=== PATIENT | female | born 1990 | race Caucasian/White ===

== ENCOUNTER → 2016-07-19 | Outpatient (REF) | payer OTHER ==
[~2016-07-19] MED LIST: ACET50TA PO; IBUP-1114 PO; PRENTAB9 PO
== END ==
LOC: M LAB REF 16:48
PROVIDERS: ATTEND Advanced Practice Midwife
DX: Z12.4 Encounter for screening for malignant neoplasm of cervix (principal)

== ENCOUNTER → 2017-10-03 | Outpatient (REF) | payer OTHER, SELFPAY | LOC: M LAB REF 13:42 | DX: Z12.4 Encounter for screening for malignant neoplasm of cervix (principal) | CPT/HCPCS: 88142; G0123 ==

== ENCOUNTER 2018-01-02 06:49 | Emergency (ER) | payer OTHER, SELFPAY ==
[2018-01-02] MEDS: NS 500 ML IV ×4 (08:34)
[2018-01-02] MEDS: KETOROLAC 30 MG/ML VIAL (J1885) IV ×4 (08:37)
[2018-01-02 08:42] LABS: BASO % 0.2 % (0.0-1.0); EOS # 0.1 10^3/uL (0.0-0.50); HEMATOCRIT 40.2 % (36.0-47.0); HEMOGLOBIN 13.8 g/dl (12.0-15.5); IMMATURE GRANULOCYTE % 0.4 % (0-3.0); LYMPH # 1.6 10^3/uL (1.5-6.5); LYMPH % 16.2 % (24.0-44.0); MEAN CORPUSCULAR HEMOGLOBIN 30.5 pg (27.0-33.0); MEAN CORPUSCULAR HGB CONC 34.3 g/dl (32.0-36.5); MEAN CORPUSCULAR VOLUME 88.7 fl (80.0-96.0); MONO # 0.2 10^3/uL (0.0-0.8); MONO % 2.4 % (0.0-5.0); NEUTROPHILS % 79.8 % (36.0-66.0); PLATELET COUNT, AUTOMATED 268 10^3/uL (150-450); RED BLOOD COUNT 4.53 10^6/uL (4.00-5.40); RED CELL DISTRIBUTION WIDTH 12.5 % (11.5-14.5)
[2018-01-02 08:45] LABS: KETONE, URINE AUTO RFX TRACE mg/dL (NEGATIVE); LEUKOCYTE ESTERASE UR AUTO RFX NEGATIVE (NEGATIVE); MUCUS, URINE RFX SMALL (NEGATIVE); NITRITE, URINE AUTO RFX NEGATIVE (NEGATIVE); RBC, URINE AUTO RFX 4 /HPF (0-3); SPECIFIC GRAVITY UR AUTO RFX 1.041 (1.002-1.035); SQUAM EPITHELIAL CELL UR AURFX 7 /HPF (0-6); WBC, URINE AUTO RFX 3 /HPF (0-3)
[2018-01-02 09:07] LABS: CONTROL LINE HCG INT CTR LINE PRESENT; HCG, SERUM QUALITATIVE NEGATIVE (NEGATIVE)
[2018-01-02 09:10] LABS: ALBUMIN 4.5 GM/DL (3.2-5.2); ALBUMIN/GLOBULIN RATIO 1.22 (1.00-1.93); ALKALINE PHOSPHATASE 97 U/L (45-117); ALT/SGPT 19 U/L (12-78); AMYLASE 61 U/L (25-115); ANION GAP 8 MEQ/L (8-16); AST/SGOT 11 U/L (7-37); BILIRUBIN,DIRECT < 0.1 MG/DL (0.0-0.2); BILIRUBIN,TOTAL 0.2 MG/DL (0.2-1.0); BLOOD UREA NITROGEN 18 MG/DL (7-18); CALCIUM LEVEL 9.5 MG/DL (8.5-10.1); CARBON DIOXIDE LEVEL 23 MEQ/L (21-32); CHLORIDE LEVEL 108 MEQ/L (98-107); CREATININE FOR GFR 0.65 MG/DL (0.55-1.30); GLOMERULAR FILTRATION RATE > 60.0 (>60); GLUCOSE, FASTING 122 MG/DL (70-100); LIPASE 108 U/L (73-393); POTASSIUM SERUM 4.5 MEQ/L (3.5-5.1); SODIUM LEVEL 139 MEQ/L (136-145); TOTAL PROTEIN 8.2 GM/DL (6.4-8.2)
[2018-01-02] MEDS ORDERED: ISOVUE-370 76% 100ML VIAL (Q9967) As Ordered ×4 (09:46)
[2018-01-02] MEDS: GI COCKTAIL 50ML BTL(HYOSCYAMINE/MAALOX/LIDOCAINE VISCOUS)(1:3:1) PO ×4 (10:35)
[2018-01-02 12:34] LABS: CHLAMYDIA DNA AMPLIFICATION NEGATIVE (NEGATIVE); GC DNA AMPLIFICATION NEGATIVE (NEGATIVE)
== END 2018-01-02 11:03 | disposition home or self-care (01) ==
LOC: M ED 06:49
DX: N30.01 Acute cystitis with hematuria (principal); N76.0 Acute vaginitis; F17.210 Nicotine dependence, cigarettes, uncomplicated; Z79.3 Long term (current) use of hormonal contraceptives
CPT/HCPCS: Q9967

== ENCOUNTER 2018-11-29 19:50 | Emergency (ER) | payer MEDICAID, OTHER, SELFPAY ==
[~2018-11-29] VITALS: Ht 157.5 cm; Wt 64.1 kg
[~2018-11-29 19:50] MED LIST changes: -ACET50TA PO; +BACT800T5 PO; +MAPA500T2 PO; +PEPC1TAB5 PO; +SALINE INH
[2018-11-29] MEDS ORDERED: ACET-908 PO (19:58)
[2018-11-29 20:27] LABS: HEMATOCRIT 36.2 % (36.0-47.0); HEMOGLOBIN 12.4 g/dl (12.0-15.5); MEAN CORPUSCULAR HEMOGLOBIN 30.1 pg (27.0-33.0); MEAN CORPUSCULAR HGB CONC 34.3 g/dl (32.0-36.5); MEAN CORPUSCULAR VOLUME 87.9 fl (80.0-96.0); PLATELET COUNT, AUTOMATED 220 10^3/uL (150-450); RED BLOOD COUNT 4.12 10^6/uL (4.00-5.40); WHITE BLOOD COUNT 14.8 10^3/uL (4.0-10.0)
[2018-11-29] MEDS ORDERED: ONDANSETRON 4MG/2ML VIAL (J2405) IV ONE (20:45)
[2018-11-29] MEDS ORDERED: NS 1,000 ML IV ONE (20:45)
[2018-11-29] MEDS ORDERED: NITROFURANTOIN (MACROBID) 100 MG CAP PO ONE (22:00)
[2018-11-29] MEDS ORDERED: MACR100C43 PO (22:01)
[2018-11-29 22:16] VITALS: BP 115/62
== END 2018-11-29 22:20 | disposition home or self-care (01) ==
LOC: M ED 19:50
DX: O23.11 Infections of bladder in pregnancy, first trimester (principal); O99.611 Diseases of the digestive system complicating pregnancy, first trimester; K21.9 Gastro-esophageal reflux disease without esophagitis; Z87.891 Personal history of nicotine dependence; Z3A.12 12 weeks gestation of pregnancy
CPT/HCPCS: 80047; 81001; 83605; 84702; 85027; 87088; 87186; 96361; 96374; 99284; J2405

== ENCOUNTER → 2018-12-25 | Outpatient (REF) | payer MEDICAID ==
[~2018-12-25] MED LIST changes: +ACET-908 PO; +MACR100C43 PO
== END ==
LOC: M LAB REF 17:08
PROVIDERS: ATTEND Advanced Practice Midwife
DX: R30.0 Dysuria (principal)

== ENCOUNTER → 2019-01-15 | Outpatient (CLI) | payer OTHER, MEDICAID ==
[2019-01-15 17:33] LABS: BASO % 0.3 % (0.0-1.0); EOS # 0.4 10^3/uL (0.0-0.5); EOS % 3.5 % (0.0-3.0); HEMATOCRIT 34.2 % (36.0-47.0); HEMOGLOBIN 11.4 g/dl (12.0-15.5); LYMPH # 1.9 10^3/uL (1.5-5.0); LYMPH % 17.9 % (24.0-44.0); MEAN CORPUSCULAR HEMOGLOBIN 29.7 pg (27.0-33.0); MEAN CORPUSCULAR HGB CONC 33.3 g/dl (32.0-36.5); MEAN CORPUSCULAR VOLUME 89.1 fl (80.0-96.0); MONO # 0.5 10^3/uL (0.0-0.8); MONO % 4.5 % (0.0-5.0); NEUTROPHILS # 7.8 10^3/uL (1.5-8.5); NEUTROPHILS % 73.4 % (36.0-66.0); PLATELET COUNT, AUTOMATED 241 10^3/uL (150-450); RED BLOOD COUNT 3.84 10^6/uL (4.00-5.40); WHITE BLOOD COUNT 10.6 10^3/uL (4.0-10.0)
[2019-01-15 19:38] LABS: CHLAMYDIA DNA AMPLIFICATION NEGATIVE (NEGATIVE); GC DNA AMPLIFICATION NEGATIVE (NEGATIVE)
[2019-01-16 10:36] LABS: HEPATITIS C VIRUS ABY INDEX 0.1 INDEX (<0.8); HIV 1&2 SCREEN CENTAUR NEGATIVE (NEGATIVE); RUBELLA IgG QUALITATIVE IMMUNE (IMMUNE)
== END ==
LOC: M SMT 14:27
PROVIDERS: ATTEND Advanced Practice Midwife
DX: Z34.82 Encounter for supervision of other normal pregnancy, second trimester (principal); Z3A.18 18 weeks gestation of pregnancy

== ENCOUNTER → 2019-01-25 | Outpatient (CLI) | payer MEDICAID, OTHER ==
--- NOTE | 2019-01-25 19:33 | REP ---
REASON: anatomy. PRIORS: None. Multiple ultrasonographic images of the gravid uterus show a single living intrauterine gestation in the doug breach presentation. Doppler interrogation of the heart shows a heart rate of 151 beats per minutes. The placenta is anterior and not low lying. The subjective amniotic fluid volume is within normal limits. The cervix measures 4.9 cm in length and is closed. Evaluation of the maternal adnexal spaces showed no abnormalities. The anatomical structures seen is unremarkable and are as follows: Thalami, cavum septum pellucidum, cerebellum, cisterna magna, cerebral ventricles, spine, kidneys, urinary bladder, upper and lower extremities, three vessel umbilical cord, cord insertion, stomach, four chamber heart, right and left ventricular outflow tracts and facial features. BPD: 4.6 cm 20 weeks 0 days. HC: 16.8 cm 19 weeks 3 days. AC: 14.4 cm 19 weeks 5 days FL: 3.1 cm 19 weeks 4 days The estimated weight is 338 grams which is at the 32 percentile for a 20 week 1 day gestational age. IMPRESSION:Single living intrauterine gestation as described above with an estimated gestational age of 19 weeks 5 days via composite criteria and an estimated date of delivery of 06/16/2019 by today's exam. No anomalies were detected. Electronically Signed by Beto Germain DO 01/28/2019 02:51 P
== END ==
LOC: M RAD 11:35
PROVIDERS: ATTEND Advanced Practice Midwife
DX: Z34.82 Encounter for supervision of other normal pregnancy, second trimester (principal); Z3A.18 18 weeks gestation of pregnancy

== ENCOUNTER → 2019-03-12 | Outpatient (CLI) | payer OTHER ==
[2019-03-12 15:22] LABS: BASO % 0.1 % (0.0-1.0); EOS # 0.1 10^3/uL (0.0-0.5); EOS % 1.3 % (0.0-3.0); HEMATOCRIT 32.3 % (36.0-47.0); HEMOGLOBIN 10.5 g/dl (12.0-15.5); LYMPH # 1.7 10^3/uL (1.5-5.0); LYMPH % 19.5 % (24.0-44.0); MEAN CORPUSCULAR HEMOGLOBIN 29.2 pg (27.0-33.0); MEAN CORPUSCULAR HGB CONC 32.5 g/dl (32.0-36.5); MEAN CORPUSCULAR VOLUME 89.7 fl (80.0-96.0); MONO # 0.4 10^3/uL (0.0-0.8); MONO % 4.1 % (0.0-5.0); NEUTROPHILS # 6.4 10^3/uL (1.5-8.5); NEUTROPHILS % 74.4 % (36.0-66.0); PLATELET COUNT, AUTOMATED 194 10^3/uL (150-450); WHITE BLOOD COUNT 8.6 10^3/uL (4.0-10.0)
== END ==
LOC: M LAB 13:55
PROVIDERS: ATTEND Advanced Practice Midwife
DX: Z34.82 Encounter for supervision of other normal pregnancy, second trimester (principal)

== ENCOUNTER → 2019-05-14 | Outpatient (REF) | payer OTHER, MEDICAID | LOC: M SFHCWAGY 16:41 | PROVIDERS: ATTEND Advanced Practice Midwife | DX: Z34.83 Encounter for supervision of other normal pregnancy, third trimester (principal) ==

== ENCOUNTER → 2019-05-28 | Outpatient (CLI) | payer OTHER | LOC: M PLALAB 10:53 | PROVIDERS: ATTEND Advanced Practice Midwife | DX: Z34.83 Encounter for supervision of other normal pregnancy, third trimester (principal) ==

== ENCOUNTER → 2019-06-04 | Outpatient (CLI) | payer MEDICAID, OTHER ==
--- NOTE | 2019-06-04 16:57 | REP ---
Obstetric sonography: History: Size greater than dates. Findings: Scanning through the gravid uterus demonstrates a viable single intrauterine gestation in a cephalic lie. motion is observed and heart rate is recorded at 149 beats per minute. An anterior grade 3 placenta is seen without evidence of previa or abruption. Amniotic fluid is subjectively normal. Closed cervical length is seen to measure 3.1 cm, viewed transabdominally. No extrauterine abnormalities observed. There has been appropriate interval growth. face and profile, left-sided stomach, abdominal wall cord insertion, three-vessel cord, kidneys and bladder are seen today and are felt to be unremarkable. Biometry chart: BPD 9.5 cm = 38 weeks 4 days HC 34.5 cm = 39 weeks 6 days AC 36.0 cm = 39 weeks 6 days FL 7.2 cm = 36 weeks 5 days HL 6.2 cm = 36 weeks 0 days HC/AC ratio normal 1.0. Cephalic index normal 0.77. Estimated weight 3678 grams, 8 pounds 1 ounce, 67th percentile for 38 weeks 5 days, IVON normal 13.0 cm. Impression: Viable single intrauterine gestation at 38 weeks 0 days by today's composite criteria. Expected gestational age estimate based on prior sonography is 38 weeks 5 days. ALONZO by prior sonography June 13, 2019.
== END ==
LOC: M WHC 11:36
PROVIDERS: ATTEND Advanced Practice Midwife
DX: Z34.83 Encounter for supervision of other normal pregnancy, third trimester (principal)

== ENCOUNTER 2019-06-10 13:38 | Inpatient (IN) | payer MEDICAID, OTHER ==
[~2019-06-10] VITALS: Ht 157.5 cm; Wt 74.1 kg
[2019-06-10] VITALS (12 sets, daily range): BP systolic 125–142; BP diastolic 75–91
[2019-06-10] MEDS ORDERED: PRENTAB9 PO (14:06)
[2019-06-10] MEDS ORDERED: PENICILLIN G POTASSIUM IV 5 MU in D5W MINI-BAG PLUS 100 ML IV STA (15:44)
--- NOTE | 2019-06-10 15:56 | HPEPDOC ---
Obstetrical History & Physical General Date of Admission Jun 10, 2019 at 15:45 Primary Care Physician: TL BOSWELL CNM History of Present Illness Khushboo is a 28-year-old (G)2 para (P)1-0-0-1 at 39+4 weeks by LMP and consistent with second trimester ultrasound. ALONZO 06/13/2019. has been complicated by late entry to care and GBS positive status. Presents to Labor and Delivery (L&D) for assessment of labor. Patient c/o onset of painful uterine contractions at about 1230 today accompanied by normal bloody show. Contractions are every 2-7 minutes. She reports positive movement, denies leakage of fluid. Chief Complaint: Contractions, term Information Provided By: Patient Age: 28 : 2 Term: 1 Pre-term: 0 Abortions: 0 Livin Care Care: Limited Care (Late entry to care) Dating Final EDC: Jun 13, 2019 Final EDC by: LMP LMP: Sep 06, 2018 EGA at Admission: 39.4 Antepartum Course Diagnos(e)s GBS positive, late entry to care Height (inches): 62 Pre- weight (lbs.): 137 Admission Weight (lbs.): 163 Change in Weight (lbs.): 26 Past Medical History Past Obstetrical History : Past Obstetrical History: Primgravida Type of Delivery: Spontaneous Vaginal Del. 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 pertinent history Past Medical History Medical History no current medical problems Surgical History: Other (Mouth surgery) Family History Significant Family History: No pertinent family hx Social History Marital Status: Family situation: Spouse/partner home Psychosocial History: No pertinent psych hx * Smoker: former Smoker Alcohol: Denies Drugs: denies Abuse Violence Screening Have you been hit/kicked/slapp: No Have you been sexually assault: No Imunizations Tdap status: declined Allergies Coded Allergies: No Known Allergies (Unverified , 07/01/08) Medications Scheduled No.137/Iron/Folic Acd ( Vitamin Tablet) 1 Each Tablet, 1 TAB PO DAILY Physical Examination Physical Examination GENERAL: Alert and oriented times three. BREAST: . ABDOMEN: Gravid and non-tender to touch. FETUS: Is vertex (VTX) by sterile vaginal examination (SVE), fetus is vertex (VTX) by Truman. HEART RATE: Regular rate and rhythm. LUNGS: Clear to auscultation (CTA). EXTREMITIES: No edema. No clonus. Deep tendon reflexes (DTRs) + 2 Vital Signs/I&O Vital Signs Date Time Temp Pulse Resp B/P (MAP) Pulse Ox O2 Delivery O2 Flow Rate FiO2 06/10/19 13:55 98.3 100 139/91 (107) Pertinent Laboratoy Data Blood Type: O- RBC Antibody Screen: Negative HIV: Negative Hepatitis B: Negative Hepatitis C: Negative Rapid Plasma Reagin: Nonreactive Rubella: Immune Chlamydia/Gonorrhea: Negative Group B Streptococcus: Positive Glucose Tolerance Test: 180 (glucose monitoring WNL; no GDM) Anatomy Ultrasound Ultrasound Date: Jan 25, 2019 Placenta Location: Anterior Normal Anatomy: Yes Placenta Previa: No Estimated Weight (grams): 338 (32%) Other Ultrasounds 01/15/2019-TAUS SIUP, +FH, +FM. Advanced gestation. 01/25/[id number], EFW 338g (32%). FHR 151, Placenta anterior, no previa. IVON normal. No anomalies noted. Steroid Therapy Steroid Therapy: No Vaginal Examination Dilation: 7 cm Effacement: 90% Station: 0 Cervical Consistency: Soft Cervical Position: Anterior Presentation: Cephalic presentation Position: Vertex (occiput) Assessment Heart Rate (FHR): 135 Variability: Moderate Accelerations: Positive Decelerations: None Tocometer Contractions: Yes Frequency: every 1-5 min. Duration: greater than 90 seconds Strength: palpated as moderate Assessment/Plan Assessment SIUP @ 39.4 wk gestation, active labor. Membranes intact. GBS positive. Plan Admit to labor and delivery. Diet: Clears. Group B Streptococcus (GBS) positive. Start antibiotics per order. Labs and intravenous (IV) per unit protocol. Lactated Ringers (LR): Bolus 500 mL, then at 125 mL/hr. Anesthesia consult PRN. Anticipate cervical change. Anticipate normal spontaneous delivery (). C-S as appropriate. TL BOSWELL CNM Jun 10, 2019 15:56
[2019-06-10] MEDS ORDERED: OXYTOCIN 30 UNITS IN 0.9% NaCl 500ML IV BAG (J2590) As Ordered ONE (15:59)
[2019-06-10] MEDS ORDERED: LR 1,000 ML IV SCH (16:45)
[2019-06-10 17:05] LABS: HEMATOCRIT 28.7 % (36.0-47.0); HEMOGLOBIN 9.3 g/dl (12.0-15.5); MEAN CORPUSCULAR HEMOGLOBIN 26.9 pg (27.0-33.0); MEAN CORPUSCULAR HGB CONC 32.4 g/dl (32.0-36.5); MEAN CORPUSCULAR VOLUME 82.9 fl (80.0-96.0); PLATELET COUNT, AUTOMATED 204 10^3/uL (150-450); RED BLOOD COUNT 3.46 10^6/uL (4.00-5.40); WHITE BLOOD COUNT 10.7 10^3/uL (4.0-10.0)
[2019-06-10] MEDS ORDERED: OXYTOCIN DRIP 30 UNITS in IV 1 EA IV SCH (19:40)
--- NOTE | 2019-06-10 19:40 | DNPDOC ---
[facility] Delivery Note Delivery Note DATE OF DELIVERY: 06/10/2019 at 1844 PREDELIVERY DIAGNOSIS: 39-4/7 weeks' gestation and labor. POST DELIVERY DIAGNOSIS: Delivered. PROCEDURE: Spontaneous vaginal delivery. PROVIDER: Arminda Meeks, Student Nurse-Entry Level Drafter, assisted by Tl Bray CNM, JUDITH ANESTHESIA: None. ESTIMATED BLOOD LOSS: 450 mL. FINDINGS: 8 pound 9 ounce (3720g) viable male , Score 8/9. DELIVERY SUMMARY: Patient is a 28-year-old 2 now para 1-0-0-1 who was admitted to labor and delivery for active labor. SROM of clear fluid at 1803. She progressed to full dilation at 1830 and pushed to a living male in the SOLANGE position with restitution to ROT at 1844. The anterior shoulder delivered with ease and the corpus immediately followed. The baby was placed on the maternal abdomen, [id number], active and crying. The cord was clamped times 2 after pulsation ceased and cut by the nurse. A 3-vessel cord was noted. The placenta delivered spontaneously and intact at 1853. Uterine hemostasis was achieved via rapid infusion of IV Pitocin at 999 ml/hr for 30 units in 500 ml NS and fundal massage. The vagina, cervix and perineum were inspected and found to have a first degree vaginal laceration that was repaired using 3.[address]-1. She was also found to have multiple small abrasions near the clitoral lobato that were not repaired due to good hemostasis. All counts of instruments and sponges are correct. Mother plans to formula feed. Both mother and baby are in stable condition. TL BRAY CNM Jun 10, 2019 19:40
[2019-06-10] MEDS ORDERED: CALCIUM CARBONATE 500 MG CHEW U/D PO PRN (19:45)
[2019-06-10] MEDS ORDERED: METHYLERGONOVINE MALEATE 0.2 MG TAB PO PRN (19:45)
[2019-06-10] MEDS ORDERED: ANUSOL HC CREAM 30GM TOP PRN (19:45)
[2019-06-10] MEDS ORDERED: IBUPROFEN 600 MG TAB PO PRN (19:45)
[2019-06-10] MEDS ORDERED: ACETAMINOPHEN TAB 650MG DOSE (2X325MG) PO PRN (19:45)
[2019-06-10] MEDS ORDERED: RHOGAM 300 MCG (1500 IU) INJ (J2790) IM SCH (19:45)
[2019-06-10] MEDS ORDERED: LIDOCAINE 1% MDV 20ML VIAL INFIL ONE (19:45)
[2019-06-10] MEDS ORDERED: DIBUCAINE 1% OINTMENT 30GM TOP PRN (19:45)
[2019-06-10] MEDS ORDERED: MEASLES,MUMPS,RUBELLA VACCINE INJ (MMR-II) (90707) SC SCH (19:45)
[2019-06-10] MEDS ORDERED: DOCUSATE SODIUM 100 MG CAP PO PRN (19:45)
[2019-06-10 19:59] LABS: ALT/SGPT 15 U/L (12-78); BILIRUBIN,TOTAL 0.2 MG/DL (0.2-1.0); CREATININE FOR GFR 0.55 MG/DL (0.55-1.30); GLOMERULAR FILTRATION RATE > 60.0 (>60); LDH LACTATE DEHYDROGENASE 275 U/L (84-246); URIC ACID 4.9 MG/DL (2.6-6.0)
[2019-06-10] MEDS ORDERED: PENICILLIN G POTASSIUM IV 2.5 MU in IV 1 EA IV SCH (20:00)
[2019-06-10] MEDS: IBUPROFEN 800 MG TAB PO PRN (20:06)
[2019-06-10] MEDS: ACETAMINOPHEN 500 MG TAB PO PRN (21:28)
[2019-06-11] MEDS: IBUPROFEN 800 MG TAB PO PRN ×3 (03:38→21:33)
[2019-06-11 06:00] VITALS: BP 124/76
--- NOTE | 2019-06-11 06:56 | IPNPDOC ---
Progress Note Date of Service: Jun 11, 2019 Day#: 1 Progress Note SUBJECT: Khushboo is a 28-year-old 2 now Para 2-0-0-2 status post uncomplicated spontaneous vaginal delivery at 39-4/7 weeks' doing well day # 1. She has been ambulating, voiding spontaneously without issue and tolerating regular diet. Formula feeding without issue. Reports lochia is like a normal period. Denies any pain. OBJECTIVE: VITAL SIGNS: Within normal limits, afebrile. Alert and oriented times three. Breath sounds clear to auscultation. Heart rate: Regular rate and rhythm, no murmurs, rubs or gallops. Abdomen: Fundus firm at U-1. Soft, appropriately tender to palpation. Minimal lochia. ASSESSMENT: day #1. Vitals within normal limits, afebrile, hemodynamically stable with no evidence of infection. PLAN: 1. Discharge to home tomorrow. 2. Tylenol and Motrin for pain. 3. Encourage ambulation. 4. Routine care. VS, I&O, 24H, Jose Vital Signs/I&O Vital Signs Date Time Temp Pulse Resp B/P (MAP) Pulse Ox O2 Delivery O2 Flow Rate FiO2 06/11/19 06:00 98.3 84 16 124/76 (92) 98 Room Air I&O- Last 24 Hours up to 6 AM 06/11/19 06:00 Intake Total 500 ml Output Total 450 ml Balance 50 ml Laboratory Data 24H LABS Laboratory Tests 2 06/10/19 15:59: Serology Scanned Report Hepatitis B Testing 06/10/19 16:07: Nucleated Red Blood Cells % (auto) 0.0, Glomerular Filtration Rate > 60.0, Uric Acid 4.9, Total Bilirubin 0.2, Aspartate Amino Transf (AST/SGOT) 17, Alanine Aminotransferase (ALT/SGPT) 15, Lactate Dehydrogenase 275H, Syphilis Serology NONREACTIVE CBC/BMP Laboratory Tests 06/10/19 16:07 TL BOSWELL CNM Jun 11, 2019 06:56
[2019-06-11] MEDS: PRENATAL VITAMINS CHEWABLE TABLET PO SCH (07:59)
[2019-06-11] MEDS: ACETAMINOPHEN 500 MG TAB PO PRN (14:41)
[2019-06-11 18:00] VITALS: BP 116/72
[2019-06-12] MEDS: ACETAMINOPHEN 500 MG TAB PO PRN ×2 (04:03→20:28)
[2019-06-12] MEDS ORDERED: ACET-683 PO (05:12)
[2019-06-12] MEDS ORDERED: IBUP80TA PO (05:12)
[2019-06-12 06:00] VITALS: BP 128/88
[2019-06-12] MEDS: PRENATAL VITAMINS CHEWABLE TABLET PO SCH (07:57)
[2019-06-12] MEDS: IBUPROFEN 800 MG TAB PO PRN (11:21)
== END 2019-06-12 20:50 | disposition home or self-care (01) | DRG 560 ==
LOC: M LDO 13:38 → M LDI 15:45 → M OBS 21:05
PROVIDERS: ADMIT Advanced Practice Midwife; ATTEND Advanced Practice Midwife
PROC: 10E0XZZ Delivery of Products of Conception, External Approach (ICD-10-PCS; principal; 2019-06-10)
PROC: 0HQ9XZZ Repair Perineum Skin, External Approach (ICD-10-PCS; 2019-06-10)
DX: O99.824 Streptococcus B carrier state complicating childbirth (principal); Z37.0 Single live birth; Z3A.39 39 weeks gestation of pregnancy; O70.0 First degree perineal laceration during delivery

== ENCOUNTER → 2022-12-06 | Outpatient (REF) | payer OTHER, MEDICAID ==
[~2022-12-06] MED LIST changes: +ACET-683 PO; -ACET-908 PO; +ACET-910 PO; +IBUP80TA PO
[2022-12-06 17:44] LABS: APPEARANCE, URINE CLOUDY (CLEAR); BACTERIA, URINE AUTO NEGATIVE (NEGATIVE); BILIRUBIN, URINE AUTO NEGATIVE (NEGATIVE); BLOOD, URINE BLOOD 1+ (NEGATIVE); COLOR, URINE AMBER (YELLOW); GLUCOSE, URINE (UA) AUTO NEGATIVE (NEGATIVE); KETONE, URINE AUTO TRACE mg/dL (NEGATIVE); LEUKOCYTE ESTERASE, URINE AUTO 1+ (NEGATIVE); MUCUS, URINE LARGE (NEGATIVE); NITRITE, URINE AUTO NEGATIVE (NEGATIVE); PROTEIN, URINE AUTO 2+ mg/dL (NEGATIVE); RBC, URINE AUTO 0 /HPF (0-3); SPECIFIC GRAVITY URINE AUTO 1.024 (1.002-1.035); SQUAMOUS EPITHELIAL CELL UR AU 17 /HPF (0-6); WBC, URINE AUTO 23 /HPF (0-3)
== END ==
LOC: M LAB REF 16:24
PROVIDERS: ATTEND Physician Assistant Medical
DX: N39.0 Urinary tract infection, site not specified (principal)

== ENCOUNTER → 2023-08-16 | Outpatient (REF) | payer MEDICAID, OTHER | LOC: M SFHCWAGY 10:22 | PROVIDERS: ATTEND Nurse Practitioner Family | DX: Z12.4 Encounter for screening for malignant neoplasm of cervix (principal) ==

== ENCOUNTER → 2023-10-10 | Outpatient (CLI) | payer OTHER | LOC: M CLY 13:10 | PROVIDERS: ATTEND Nurse Practitioner Family | DX: R06.01 Orthopnea (principal); Z87.891 Personal history of nicotine dependence ==

== ENCOUNTER → 2024-01-02 | Outpatient (REF) | payer OTHER ==
[2024-01-02 17:19] LABS: BASO % 0.4 % (0.0-1.0); EOS # 0.3 10^3/uL (0.0-0.5); EOS % 4.1 % (0.0-3.0); HEMATOCRIT 39.7 % (36.0-47.0); HEMOGLOBIN 13.2 g/dl (12.0-15.5); LYMPH # 2.5 10^3/uL (1.5-5.0); LYMPH % 30.7 % (24.0-44.0); MEAN CORPUSCULAR HEMOGLOBIN 30.2 pg (27.0-33.0); MEAN CORPUSCULAR HGB CONC 33.2 g/dl (32.0-36.5); MEAN CORPUSCULAR VOLUME 90.8 fl (80.0-96.0); MONO # 0.4 10^3/uL (0.0-0.8); MONO % 4.7 % (2.0-8.0); NEUTROPHILS # 4.9 10^3/uL (1.5-8.5); NEUTROPHILS % 59.9 % (36.0-66.0); PLATELET COUNT, AUTOMATED 267 10^3/uL (150-450); RED BLOOD COUNT 4.37 10^6/uL (4.00-5.40); WHITE BLOOD COUNT 8.1 10^3/uL (4.0-10.0)
[2024-01-02 17:40] LABS: C REACTIVE PROTEIN QUANTITATIV 0.8 MG/DL (<1.0)
[2024-01-02 17:46] LABS: IMMUNOGLOBULIN E 131.8 IU/ML (0-378)
[2024-01-04 14:32] LABS: BERMUDA GRASS IGE < 0.10 kU/L (<0.10); BIRCH IGE < 0.10 kU/L (<0.10); COMMON RAGWEED SHORT IGE 0.11 kU/L (<0.10); D001 IGE D PTERONYSSINUS < 0.10 kU/L (<0.10); D002-IGE D FARINAE < 0.10 kU/L (<0.10); E005-IGE DOG DANDER 5.83 kU/L (<0.10); ELM IGE < 0.10 kU/L (<0.10); I006 IGE COCKROACH < 0.10 kU/L (<0.10); IMMUNOGLOBULIN E FOR ALLERGENS 213 kU/L (<OR=114); M002 IGE CLADOSPORIUM HERBARU < 0.10 kU/L (<0.10); M003 IGE ASPERGILLUS FUMIGATU < 0.10 kU/L (<0.10); M006 IGE ALTERNIA ALTERNATA < 0.10 kU/L (<0.10); M1-PENICILLIUM NOTATUM < 0.10 kU/L (<0.10); MOUSE URINE IGE < 0.10 kU/L (<0.10); MUGWORT IGE < 0.10 kU/L (<0.10); OAK IGE < 0.10 kU/L (<0.10); ROUGH PIGWEED IGE < 0.10 kU/L (<0.10); SHEEP SORREL IGE < 0.10 kU/L (<0.10); SYCAMORE IGE < 0.10 kU/L (<0.10); T001-IGE MAPLE BOX ELDER < 0.10 kU/L (<0.10); T006-IGE MOUNTAIN CEDAR < 0.10 kU/L (<0.10); T014 COTTONWOOD IGE < 0.10 kU/L (<0.10); TIMOTHY GRASS IGE < 0.10 kU/L (<0.10); WALNUT TREE IGE < 0.10 kU/L (<0.10); WHITE ASH IGE < 0.10 kU/L (<0.10); WHITE MULBERRY IGE < 0.10 kU/L (<0.10)
[2024-01-05 19:17] LABS: E094-IgE Fel d 1 34.2 kU/L (<0.10); E101-IgE Can f 1 4.11 kU/L (<0.10); E102-IgE Can f 2 < 0.10 kU/L (<0.10); E226 IgE Can f 5 < 0.10 kU/L (<0.10); E229 IGE CAN F 4 < 0.10 kU/L (<0.10)
== END ==
LOC: M LABDRAWC 16:42
PROVIDERS: ATTEND Internal Medicine Critical Care Medicine
DX: J45.20 Mild intermittent asthma, uncomplicated (principal)

== ENCOUNTER → 2024-02-20 | Outpatient (REF) | payer OTHER | LOC: M SFHCCLAY 09:59 | PROVIDERS: ATTEND Nurse Practitioner Family | DX: J45.20 Mild intermittent asthma, uncomplicated (principal); J30.89 Other allergic rhinitis; L20.9 Atopic dermatitis, unspecified; R01.1 Cardiac murmur, unspecified; Z13.220 Encounter for screening for lipoid disorders ==

== ENCOUNTER → 2024-04-09 | Outpatient (CLI) | payer OTHER | LOC: M CARPUL 09:29 | PROVIDERS: ATTEND Nurse Practitioner Family | DX: R01.1 Cardiac murmur, unspecified (principal); I35.0 Nonrheumatic aortic (valve) stenosis ==

== ENCOUNTER → 2025-02-25 | Outpatient (REF) | payer OTHER ==
[2025-02-25 18:27] LABS: BASO # 0.0 10^3/uL (0.0-0.2); BASO % 0.2 % (0.0-1.0); EOS # 0.3 10^3/uL (0.0-0.5); EOS % 3.4 % (0.0-3.0); LYMPH # 2.4 10^3/uL (1.5-5.0); LYMPH % 25.9 % (24.0-44.0); MONO # 0.5 10^3/uL (0.0-0.8); MONO % 5.4 % (2.0-8.0); NEUTROPHILS # 6.0 10^3/uL (1.5-8.5); NEUTROPHILS % 64.8 % (36.0-66.0); PLATELET COUNT, AUTOMATED 280 10^3/uL (150-450)
[2025-02-25 18:39] LABS: ALT/SGPT 16 U/L (7.0-40); AST/SGOT 14 U/L (<34); CALCIUM LEVEL 9.6 MG/DL (8.5-10.1); CARBON DIOXIDE LEVEL 26 MMOL/L (20-31); CHLORIDE LEVEL 103 MMOL/L (98-107); CHOLESTEROL LEVEL 186 MG/DL (<200); CHOLESTEROL RISK RATIO 3.04 (<5); CREATININE FOR GFR 0.57 MG/DL (0.55-1.30); FREE T4 1.16 NG/DL (0.89-1.76); GLOMERULAR FILTRATION RATE > 90.0 (>60); LDL CHOLESTEROL 90.8 MG/DL (<100); NON-HDL-C 125.0 MG/DL; POTASSIUM SERUM 4.2 MMOL/L (3.5-5.1); SODIUM LEVEL 140 MMOL/L (136-145); TRIGLYCERIDES LEVEL 171 MG/DL (<150)
[2025-02-25 19:40] LABS: ESTIMATED AVERAGE GLUCOSE 103.0 MG/DL (60-110)
== END ==
LOC: M SFHCCLAY 11:23
PROVIDERS: ATTEND Nurse Practitioner Family
DX: J45.20 Mild intermittent asthma, uncomplicated (principal); J30.89 Other allergic rhinitis; L20.9 Atopic dermatitis, unspecified; R01.1 Cardiac murmur, unspecified; Z13.220 Encounter for screening for lipoid disorders; R63.5 Abnormal weight gain